=== PATIENT | male | born 1945 | race Caucasian/White ===

== ENCOUNTER 2017-07-14 17:48 | Emergency (ER) | payer MEDICARE ==
[~2017-07-14] VITALS: Ht 175.3 cm; Wt 70.8 kg
[2017-07-14 17:54] VITALS: BP 139/77
== END 2017-07-14 19:26 | disposition home or self-care (01) ==
LOC: ER 18:00
DX: S93.401A Sprain of unspecified ligament of right ankle, initial encounter (principal); I10 Essential (primary) hypertension; Z96.643 Presence of artificial hip joint, bilateral; X50.1XXA Overexertion from prolonged static or awkward postures, initial encounter; W18.39XA Other fall on same level, initial encounter; Y93.89 Activity, other specified; Y92.89 Other specified places as the place of occurrence of the external cause; Y99.8 Other external cause status
CPT/HCPCS: 73610-TC; A4606; Z7610